=== PATIENT | female | born 1980 | race Caucasian/White ===

== ENCOUNTER 2021-02-12 12:06 | Emergency (ER) | payer OTHER ==
[2021-02-12 12:42] LABS: BASOPHILS # (AUTO) 0.1 10^3/uL (0.0-0.1); BASOPHILS % (AUTO) 0.6 %; EOSINOPHILS # (AUTO) 0.2 10^3/uL (0.0-0.7); EOSINOPHILS % (AUTO) 1.9 %; HCT - HEMATOCRIT 41.2 % (37.0-47.0); HGB - HEMOGLOBIN 13.4 g/dL (12.0-16.0); LYMPHOCYTES # (AUTO) 3.6 10^3/uL (1.5-3.5); LYMPHOCYTES % (AUTO) 32.9 %; MEAN CORPUSCULAR HEMOGLOBIN 28.5 pg (27.0-31.0); MEAN CORPUSCULAR HGB CONC 32.5 g/dL (32.0-36.0); MEAN CORPUSCULAR VOLUME 87.7 fL (81.0-99.0); MEAN PLATELET VOLUME 9.9 fL (7.9-10.8); MONOCYTES # (AUTO) 0.7 10^3/uL (0.0-1.0); MONOCYTES % (AUTO) 6.3 %; NEUTROPHILS # (AUTO) 6.4 10^3/uL (1.5-6.6); PLT - PLATELET COUNT 353 10^3/uL (130-450); RED CELL DISTRIBUTION WIDTH 13.2 % (12.0-15.0); WHITE BLOOD COUNT 11.1 x10^3/uL (4.8-10.8)
--- NOTE | 2021-02-12 12:42 | XRAY Report ---
PROCEDURE: Chest 1 View X-Ray INDICATIONS: Chest pain TECHNIQUE: One view of the chest was acquired. COMPARISON: None FINDINGS: Surgical changes and devices: None. Lungs and pleura: No pleural effusions or pneumothorax. Lungs are clear. Diffuse mild peribronchia l thickening bilaterally. Mediastinum: Mediastinal contours appear normal. Heart size is normal. Bones and chest wall: No suspicious bony lesions. Overlying soft tissues appear unremarkable. IMPRESSION: Findings suggestive of bronchitis and/or reactive airways disease. Reviewed by: Mary Tam MD on 02/12/2021 11:40 AM MISTY Approved by: Mary Tam MD on 02/12/2021 11:40 AM MISTY Station ID: [id number]
--- NOTE | 2021-02-12 12:47 | ED Physician Documentation ---
History of Present Illness - Stated complaint Stated Complaint: HIGH BLOOD PRESSURE - Chief complaint Chief Complaint: Cardiac - Additonal information Additional information: 40-year-old female comes to the emergency department for evaluation of visual changes, elevated blood pressure and chest discomfort. She reports that over the last week she has intermittently developed brief episodes where the vision in both her eyes goes pure white and she cannot see. This is happened at least 8 times and the symptoms usually resolve after a few seconds. However this morning the symptoms lasted for about 5 minutes. She states it was like looking into a bright light she couldn't see past. There was some sparing of her peripheral vision, but it was blurry She reports that last night she had a fairly severe headache but she attributed that to her recent Covid vaccination. She denies that she had any visual changes at the time of her headache last night. no headache or visual changes at the time of the ED evaluation right now. Denies a hx of migraines With her vision changes she has been checking her blood pressure more frequently and notes that the SBP is in the 160s and 170s. She does have a longstanding history of hypertension for which she takes metoprolol ER once daily. She describes some mild chest discomfort and tightness this am that she called "pressure like." She also has a past medical history that includes a mixed connective tissue disorder for which she was taking Plaquenil for over 4 years. However on the advice of her small engine technician she stopped taking it 2 months ago. She denies cough, fevers, unilateral leg swelling. She has no focal neuro deficits slurred speech arm or leg weakness Review of Systems Constitutional: denies: Fever, Chills Eyes: reports: Loss of vision Ears: denies: Loss of hearing, Ear pain Nose: reports: Reviewed and negative Throat: reports: Reviewed and negative Cardiac: reports: Chest pain / pressure, Palpitations. denies: Pedal edema, Calf pain Respiratory: reports: Reviewed and negative GI: reports: Reviewed and negative : reports: Reviewed and negative Skin: denies: Rash, Lesions Musculoskeletal: denies: Neck pain, Back pain Neurologic: reports: Headache. denies: Generalized weakness, Focal weakness, Numbness, Near syncope, Syncope, Seizure, Confused, LOC Psychiatric: reports: Reviewed and negative PD PAST MEDICAL HISTORY - Present Medications Home Medications: Ambulatory Orders Medication Instructions Recorded Confirmed Aspirin [[place]uda Aspirin] 81 mg PO DAILY 02/12/21 02/12/21 Brimonidine 0.1% Ophth Drops 75 drops EACHEYE TID #1 bottle 02/12/21 [Alphagan P 0.1% Ophth Drops] Ergocalciferol [Vitamin D2] 50,000 unit PO 02/12/21 Finasteride [Proscar] 1.25 mg PO DAILY 02/12/21 02/12/21 Latanoprost 0.005% Ophth Drops 1 drops OPTH QPM #2.5 ml 02/12/21 [Xalatan Ophth Drops] Metoprolol Tartrate [Lopressor] 25 mg PO DAILY 02/12/21 02/12/21 Phillips-3/Dha/Epa/Fish Oil [Fish Oil 2,000 mg PO DAILY 02/12/21 02/12/21 1,000 mg Softgel] Timolol 0.5% Ophth Drops [Timoptic 1 drops OPTH BID #5 ml 02/12/21 0.5% Ophth Drops] - Allergies Allergies/Adverse Reactions: Allergies Allergy/AdvReac Type Severity Reaction Status Date / Time bupropion [From Wellbutrin] Allergy Hives Verified 02/12/21 12:16 nitrofurantoin Allergy Rash Verified 02/12/21 12:16 [From Macrobid] trazodone Allergy Hallucinati Verified 02/12/21 12:16 ons PD ED PE EXPANDED - General General: Alert, No acute distress, Well developed/nourished - HEENT HEENT: Atraumatic, PERRL - Eyes Eyes: PERRL, Abnormal accommodation, EOMI, Anterior chambers clear, Other (No visual field deficits.). No: Subconj hemorrhage - Neck Neck: Supple w/out meningeal sx. No: Adenopathy - Cardiac Cardiac: Regular Rate, Radial strong equal, Pedal strong equal, Cap refill < 2 sec. No: Murmur Present - Respiratory Respiratory: Clear to ausultation marcio. No: Distress, Labored - Abdomen Abdomen: Normal Bowel sounds. No: Tender to palpation - Derm Derm: Normal color. No: Petecchiae, Purpura - Extremities Extremities: Normal. No: Deformity, Tenderness - Neuro Neuro: Alert and Oriented X 3, CNII-XII intact, Cerebellar nl, Normal gait, Normal finger nose, Normal speech - GCS Eye Opening: Spontaneous Motor: Obeys Commands Verbal: Oriented Total: 15 Results - Vitals Vitals: Vital Signs - 24 hr 02/12/21 02/12/21 02/12/21 12:16 13:08 15:00 Temperature 36.5 C 36.8 C Heart Rate 76 80 72 Respiratory 16 22 15 Rate Blood Pressure 168/95 H 120/73 142/78 H O2 Saturation 99 98 100 02/12/21 17:00 Temperature 36.8 C Heart Rate 76 Respiratory 21 Rate Blood Pressure 118/71 O2 Saturation 100 Oxygen O2 Source Room air - EKG (time done) 1222 Rate: Rate (enter#) (71) Rhythm: NSR [place]: Normal Intervals: Normal MS QRS: Normal Ischemia: Normal ST segments Compare to prior EKG: Old EKG unavailable Computer interpretation: Agree with computer - Labs Labs: Laboratory Tests 02/12/21 02/12/21 02/12/21 12:22 12:22 12:30 WBC RBC Hgb Hct MCV MCH MCHC RDW Plt Count MPV Neut # (Auto) Lymph # (Auto) [place] # (Auto) Eos # (Auto) Baso # (Auto) Absolute Nucleated RBC Nucleated RBC % ESR 25 H Sodium Potassium Chloride Carbon Dioxide Anion Gap BUN Creatinine Estimated GFR (MDRD) Glucose Calcium Total Bilirubin AST ALT Alkaline Phosphatase Troponin I High Sens C-Reactive Protein 2.4 H Total Protein Albumin Globulin Albumin/Globulin Ratio Lipase TSH Urine Color YELLOW Urine Clarity CLEAR Urine pH 5.5 Ur Specific Hensley 1.025 Urine Protein NEGATIVE Urine Glucose (UA) NEGATIVE Urine Ketones NEGATIVE Urine Occult Blood TRACE-INTA Urine Nitrite NEGATIVE Urine Bilirubin NEGATIVE Urine Urobilinogen 0.2 (NORMAL) Ur Leukocyte Esterase NEGATIVE Ur Microscopic Review NOT INDICATED Urine Culture Comments NOT INDICATED Urine HCG, Qual NEGATIVE Nasal Adenovirus (PCR) Nasal B. parapertussis DNA (PCR) Nasal Coronavir 229E PCR Nasal Coronavir HKU1 PCR Nasal Coronavir NL63 PCR Nasal Coronavir OC43 PCR Nasal Enterovir/Rhinovir PCR Nasal Influenza B PCR Nasal Influenza A PCR Nasal Parainfluen 1 PCR Nasal Parainfluen 2 PCR Nasal Parainfluen 3 PCR Nasal Parainfluen 4 PCR Nasal RSV (PCR) Nasal B.pertussis DNA PCR Nasal C.pneumoniae (PCR) Jv Human Metapneumo PCR Nasal M.pneumoniae (PCR) Nasal SARS-CoV-2 (PCR) 02/12/21 02/12/21 02/12/21 12:35 12:35 12:35 WBC 11.1 H RBC 4.70 Hgb 13.4 Hct 41.2 MCV 87.7 MCH 28.5 MCHC 32.5 RDW 13.2 Plt Count 353 MPV 9.9 Neut # (Auto) 6.4 Lymph # (Auto) 3.6 H [place] # (Auto) 0.7 Eos # (Auto) 0.2 Baso # (Auto) 0.1 Absolute Nucleated RBC 0.00 Nucleated RBC % 0.0 ESR Sodium 138 Potassium 4.1 Chloride 105 Carbon Dioxide 23 Anion Gap 10.0 BUN 14 Creatinine 0.8 Estimated GFR (MDRD) 80 L Glucose 94 Calcium 9.5 Total Bilirubin 0.5 AST 22 ALT 23 Alkaline Phosphatase 68 Troponin I High Sens 2.7 C-Reactive Protein Total Protein 8.0 Albumin 4.4 Globulin 3.6 Albumin/Globulin Ratio 1.2 Lipase 28 TSH Urine Color Urine Clarity Urine pH Ur Specific [place] Urine Protein Urine Glucose (UA) Urine Ketones Urine Occult Blood Urine Nitrite Urine Bilirubin Urine Urobilinogen Ur Leukocyte Esterase Ur Microscopic Review Urine Culture Comments Urine HCG, Qual Nasal Adenovirus (PCR) Nasal B. parapertussis DNA (PCR) Nasal Coronavir 229E PCR Nasal Coronavir HKU1 PCR Nasal Coronavir NL63 PCR Nasal Coronavir OC43 PCR Nasal Enterovir/Rhinovir PCR Nasal Influenza B PCR Nasal Influenza A PCR Nasal Parainfluen 1 PCR Nasal Parainfluen 2 PCR Nasal Parainfluen 3 PCR Nasal Parainfluen 4 PCR Nasal RSV (PCR) Nasal B.pertussis DNA PCR Nasal C.pneumoniae (PCR) Jv Human Metapneumo PCR Nasal M.pneumoniae (PCR) Nasal SARS-CoV-2 (PCR) 02/12/21 02/12/21 12:35 15:22 WBC RBC Hgb Hct MCV MCH MCHC RDW Plt Count MPV Neut # (Auto) Lymph # (Auto) [place] # (Auto) Eos # (Auto) Baso # (Auto) Absolute Nucleated RBC Nucleated RBC % ESR Sodium Potassium Chloride Carbon Dioxide Anion Gap BUN Creatinine Estimated GFR (MDRD) Glucose Calcium Total Bilirubin AST ALT Alkaline Phosphatase Troponin I High Sens C-Reactive Protein Total Protein Albumin Globulin Albumin/Globulin Ratio Lipase TSH 4.61 Urine Color Urine Clarity Urine pH Ur Specific [place] Urine Protein Urine Glucose (UA) Urine Ketones Urine Occult Blood Urine Nitrite Urine Bilirubin Urine Urobilinogen Ur Leukocyte Esterase Ur Microscopic Review Urine Culture Comments Urine HCG, Qual Nasal Adenovirus (PCR) NOT DETECTED Nasal B. parapertussis DNA (PCR) NOT DETECTED Nasal Coronavir 229E PCR NOT DETECTED Nasal Coronavir HKU1 PCR NOT DETECTED Nasal Coronavir NL63 PCR NOT DETECTED Nasal Coronavir OC43 PCR NOT DETECTED Nasal Enterovir/Rhinovir PCR NOT DETECTED Nasal Influenza B PCR NOT DETECTED Nasal Influenza A PCR NOT DETECTED Nasal Parainfluen 1 PCR NOT DETECTED Nasal Parainfluen 2 PCR NOT DETECTED Nasal Parainfluen 3 PCR NOT DETECTED Nasal Parainfluen 4 PCR NOT DETECTED Nasal RSV (PCR) NOT DETECTED Nasal B.pertussis DNA PCR NOT DETECTED Nasal C.pneumoniae (PCR) NOT DETECTED Jv Human Metapneumo PCR NOT DETECTED Nasal M.pneumoniae (PCR) NOT DETECTED Nasal SARS-CoV-2 (PCR) NOT DETECTED - Rads (name of study) CT angio head Radiology: Final report received (Normal CTA of the head. Bilateral ophthalmic arteries are widely patent and normal in opacification. Ventricles are normal in size and shape. Basilar cisterns are patent. No extra-axial fluid collections.) CT angio neck Radiology: Final report received PD MEDICAL DECISION MAKING - ED course Complexity details: reviewed results, re-evaluated patient, considered differential ED course: 40-year-old female who has a history of hypertension as well as a mixed connective tissue disorder presents to the emergency department for elevation of her blood pressure over the last week as well as multiple brief episodes in which she sees a pure white light in both of her eyes limiting her field of vision. She has been off her Plaquenil on the advice of her small engine technician for about 2 months. On exam she has no focal neuro deficits. EKG is nonischemic. High-sensitivity troponin is negative. Chest x-ray without acute focal abnormality. 1300: The bilateral vision changes were discussed with box feeder Dr. Ventura. She is concerned that given the patient's obesity history of mixed connective tissue disorder and the bilateral ocular symptoms that this could represent pseudotumor cerebri or increased ocular pressure. She does recommend CT imaging including vascular imaging of the brain. She would also recommend ocular pressures to be checked at this time. Patient visual acuity in the left eye is 20/30 and the visual acuity in the right eye is 20/20. This is corrected with contact lenses. CT angio of the head and neck are completed. CT angio of the head unremarkable. The CT angio of the neck does show a small enhancing mass at the carotid bifurcation. This may be an enhancing lymph node a schwannoma or other undifferentiated. Recommendation is for follow-up MRI. This is an incidental finding and was discussed with the patient. She will follow up with [facility] to obtain the appropriate MRI order. 1400: Ocular pressures 50 right eye with 95% CI and 54 left eye 95% CI. Needs urgent OrthoI spoke again with Dr. Ventura with ophthalmology. Unfortunately she does not have privileges at this hospital. Allergy consultation but given that the patient has insurance she cannot be seen in office without referral. She does recommend follow-up or evaluation with ophthalmology at [facility]. 1515: I have spoken with the transfer center at [facility]/. Awaiting return phone call from ophthalmology. 1610: I have spoken with Dr. Merritt Unger box feeder on-call at [facility]. We did recheck of the intraocular eye pressures and they were 34 bilaterally respectively. At this time he recommends initiating timolol twice daily, brimonidine twice daily as well as latanoprost once in the evening. He would like to see the patient at [facility] tomorrow at 1 PM. However he is also requesting that we consult neurology for amaurosis fugax. Transfer center is coordinating with a neurologist. 1745: I have spoken with Dr. Angeli Hernandez Neurologist with [facility]. She has reviewed the CT angio images. She to is not certain that the bilateral eyes symptoms are consistent with strokelike etiology. She however is interested in seeing the patient tomorrow afternoon after her ophthalmology appointment. At that time depending on the ophthalmology visit results she may consider further testing that could include an MRI. Patient will be discharged home with a prescription for the pressure lowering eyedrops. She has been given the phone numbers and addresses of the appointment scheduled for her tomorrow at [facility]. 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 As we discussed the cause of your loss of vision is not clear. It is possible that this is an atypical presentation of a stroke but it may also be related to the very elevated pressures in your eyes. Please fill the prescription for the pressure lowering eyedrops. It is important that you take them as prescribed and allow at least 1 to 2 minutes between each different drop when you are administering them together. [facility] opthamology 02/13/21 at [address] [facility], 4th floor, [place] [address] and Ophthalmology is in the [facility] on the fourth floor in the clinic wing. Stroke Clinic 02/13/[address] Katie Hernandez [address], [place] [address] The neurology stroke clinic is in the [facility] corner to the [facility]. It is also called the [facility]. This is on the corner of [address] [place] [address]. When you arrive at the [facility] please park in the building labeled [facility] that is the same building where the B clinic is. You will have to walk across the street to the [facility] first for your ophthalmology appointment then return to the [facility]
[2021-02-12 13:00] LABS: BILIRUBIN,URINE NEGATIVE (NEGATIVE); CLARITY,URINE CLEAR (CLEAR); GLUCOSE, URINE (UA) NEGATIVE (NEGATIVE); HCG UR QUAL NEGATIVE; KETONES,URINE (UA) NEGATIVE (NEGATIVE); LEUKOCYTE ESTERASE, URINE NEGATIVE (NEGATIVE); NITRITE,URINE NEGATIVE (NEGATIVE); OCCULT BLOOD,URINE TRACE-INTA (NEGATIVE); PH,URINE 5.5 PH (5.0-7.5); PROTEIN,URINE NEGATIVE (NEGATIVE); UROBILINOGEN,URINE 0.2 (NORMAL) E.U./dL (NORMAL)
[2021-02-12 13:04] LABS: ALBUMIN 4.4 g/dL (3.2-5.5); ALBUMIN/GLOBULIN RATIO 1.2 (1.0-2.2); BILIRUBIN,TOTAL 0.5 mg/dL (0.2-1.0); CALCIUM 9.5 mg/dL (8.5-10.3); CREATININE 0.8 mg/dL (0.4-1.0); POTASSIUM 4.1 mmol/L (3.5-5.0)
[2021-02-12] MEDS ORDERED: IOPAMIDOL-300 100 ML VIAL ONE (13:10)
[2021-02-12] MEDS ORDERED: IOPAMIDOL-300 100 ML VIAL IVP ONE (13:38)
--- NOTE | 2021-02-12 13:54 | CT Report ---
PROCEDURE: ANGIO HEAD W/WO INDICATIONS: Transient visual loss CONTRAST: IV CONTRAST: Isovue 300 ml: 100 PO CONTRAST: *NO PO CONTRAST TECHNIQUE: Precontrast 4.5 mm thick angled axial sections acquired from the foramen magnum to the vertex. Afte r the administration of intravenous contrast, 1 mm thick sections acquired through the [place] of [place] is. Postcontrast 4.5 mm thick sections then re-acquired from the foramen magnum to the vertex. 3-di mensional rxoqrng-mwqubakix-ucmdtoyphu (MIP) and/or volume rendering reformats were acquired of the c entral intracranial vasculature. For radiation dose reduction, the following was used: automated ex posure control, adjustment of mA and/or kV according to patient size. COMPARISON: None. FINDINGS: Image quality: Excellent. Anterior circulation: Intracranial internal carotid arteries are normal in size and flow. The flow within the paired anterior cerebral arteries is normal and symmetric. The flow within the middle cer ebral arteries is normal and symmetric. The anterior communicating artery is seen. Both ophthalmic a rteries are normal and well opacified. No aneurysms are seen. Posterior circulation: Visualized portions of the vertebral arteries demonstrate normal caliber, and join to form a normal appearing basilar artery. Flow within the posterior cerebral arteries is norm al and symmetric. No aneurysms are seen. CSF spaces: Ventricles are normal in size and shape. Basal cisterns are patent. No extra-axial flu id collections. Brain: No midline shift. No intracranial bleeds or masses. Chakraborty-white matter interface appears int act. Skull and face: Calvarium and facial bones appear intact, without suspicious lesions. Sinuses: Visualized sinuses and mastoids are clear. IMPRESSION: Normal CTA of the head. Bilateral ophthalmic arteries are widely patent and normal in opacification. Reviewed by: Sharad Mullins MD on 02/12/2021 1:53 PM PDT Approved by: Sharad Mullins MD on 02/12/2021 1:53 PM PDT Station ID: [id number]
--- NOTE | 2021-02-12 13:54 | CT Report ---
PROCEDURE: ANGIO NECK W INDICATIONS: Transient vision loss CONTRAST: IV CONTRAST: Isovue 300 ml: 80 PO CONTRAST: *NO PO CONTRAST TECHNIQUE: After the administration of intravenous contrast, 1.5 mm axial sections acquired from the aortic arch to the [place]. Coronal 3-D maximum intensity projection (MIP) and/or volume rendering ref ormats were then performed. For radiation dose reduction, the following was used: automated exposur e control, adjustment of mA and/or kV according to patient size. COMPARISON: None. FINDINGS: Image quality: Excellent. Normal variant bovine arch anatomy, with the brachiocephalic artery and left common carotid artery sh aring a common origin from the arch. The arch branch vessels are widely patent. The bilateral common carotid arteries and carotid bifurcations are widely patent. The extracranial portions of the interna l carotid artery are normal. There is a small (approximately 5 mm) nonspecific focus of soft tissue density with enhancement in th e arterial phase at the carotid bifurcation, interposed between the proximal-most segments of the int ernal and external carotid arteries. This is nonspecific but raises concern for a carotid body paraga nglioma. The subclavian and vertebral arteries are widely patent. IMPRESSION: Widely patent cervical arterial vasculature. Small enhancing mass at the carotid bifurcation, with differential considerations of paraganglioma, a rterially enhancing lymph node, less likely nerve sheath tumor (schwannoma or neurofibroma). The estimate of stenosis included in the report of the imaging study was calculated using the NASCET method Reviewed by: Sharad Mullins MD on 02/12/2021 1:53 PM PDT Approved by: Sharad Mullins MD on 02/12/2021 1:53 PM PDT Station ID: [id number]
[2021-02-12] MEDS ORDERED: BRIMONIDINE 0.1% OPHTH DROPS 5 ML EACHEYE STA (16:08)
[2021-02-12 16:33] LABS: B. PARAPERTUSSIS- RESP PCR PAN NOT DETECTED; B. PERTUSSIS- RESP PCR PANEL NOT DETECTED; C. PNEUMONIAE- RESP PCR PANEL NOT DETECTED; CORONAVIRUS 229E-RESP PCR NOT DETECTED; CORONAVIRUS HKU1-RESP PCR NOT DETECTED; CORONAVIRUS NL63-RESP PCR NOT DETECTED; CORONAVIRUS OC43-RESP PCR NOT DETECTED; HUMAN METAPNEUMOVIRUS NOT DETECTED; INFLUENZA A- RESP PCR PANEL NOT DETECTED; INFLUENZA B - RESP PCR PANEL NOT DETECTED; M. PNEUMONIAE- RESP PCR PANEL NOT DETECTED; PARAINFLUENZA VIRUS 1 NOT DETECTED; PARAINFLUENZA VIRUS 2 NOT DETECTED; PARAINFLUENZA VIRUS 3 NOT DETECTED; PARAINFLUENZA VIRUS 4 NOT DETECTED; RHINOVIRUS/ENTEROVIRUS NOT DETECTED; RSV- RESP PCR PANEL NOT DETECTED; SARS-CoV-2 -RESP PCR PANEL NOT DETECTED
[2021-02-12] MEDS ORDERED: TIMOLOL 0.5% OPHTH DROPS EACHEYE SCH (17:00)
[2021-02-12 18:19] VITALS: BP 124/83
== END 2021-02-12 18:19 | disposition home or self-care (01) ==
LOC: ED 12:06
DX: H54.3 Unqualified visual loss, both eyes (principal); H40.053 Ocular hypertension, bilateral; M35.1 Other overlap syndromes; R07.89 Other chest pain; R93.89 Abnormal findings on diagnostic imaging of other specified body structures; Z79.82 Long term (current) use of aspirin; Z20.822 Contact with and (suspected) exposure to COVID-19
CPT/HCPCS: 0202U; 36415; 70496; 70498; 71045; 80053; 81003; 81025; 83690; 84443; 84484; 85025; 85651; 86140; 93005; 99284; A9270; Q9967; 81001; 87086

== ENCOUNTER 2021-06-08 10:56 | Outpatient (CLI) | payer OTHER ==
[2021-06-10 22:56] VITALS: BP 130/80
--- NOTE | 2021-06-10 22:56 | SLEEP CARE CONSULTATION ---
Information from patient questionnaire entered by Radha Urrutia. I have reviewed and concur with the information entered by Radha Urrutia. This document represents the service I personally performed and the decisions made by me, Steven Joseph MD, [facility]. History of Present Illness Service Date and Time: 06/08/2021 1056 Reason for Visit: New patient Chief Complaint: reports: Unrefreshed sleep, Excessive daytime sleepiness, Fatigue, Frequent awakenings at night Date of Onset: years Usual bedtime: 2200 Time it takes to fall asleep: 5 minutes Snores at night: No (deep breathing) Observed to quit breathing while asleep: No Sleeps alone due to snoring: No Number of times waking at night: 1-3 Reasons for waking at night: reports: Bathroom, Other (arms fall asleep, hips hurt) Toss, Turn, or Twitch while sleeping: No Recalls having dreams: Yes Usually gets out of bed at: 0600 Feels refreshed in the morning: No Morning headache: No (sometimes) Sleepy or fatigued during the day: Yes Ever fallen asleep while driving: No Takes day naps: Yes (sometimes) Dreams during day naps: Yes Prior sleep studies: Yes Year and Where: 05/31/2018 [place], [place] Additional HPI information: I have the pleasure of seeing Ms. Mckeon today regarding the possibility of her having obstructive sleep apnea. As you know, she is a 40 year old lady who complains of snore, unrefreshed sleep, morning headache, excessive daytime sleepiness, and persistent fatigue. She had a home sleep apnea test (HSAT) in [place], [place] showing mild obstructive sleep apnea-hypopnea (AHI of 6.2 and stella oxygen saturation of 84%). She only slept prone that night. She was prescribed a CPAP which she tried to use for 3 4 months. She said the nasal mask kept coming off her face. She did not notice any improvement on the treatment. She still has the Respironics DreamStation autoCPAP but is not using. She is not aware that it is recalled. Since her HSAT, she has gained 35 lbs. She is seeing a mutuel machine operator who thinks she might have fibromyalgia but would like to have her sleep-disordered breathing be reevaluated first. - Parasomnia Symptoms Walks in sleep: No Talks in sleep: No Ever acted out dreams in sleep: No Ever felt weak in the knees when startled or emotional: No Bothered by creepy, crawly, restless sensations in legs: No Problems with memory or concentration: Yes Subjective Initial [place] Sleepiness Scale score: 11 (on 06/2021) Past Medical History Past Medical History: reports: Claustrophobia, Fibromyalgia, Anxiety, GERD, Other (bifurcation carotid artery mass) Social History The patient's occupation is a [employer]. Patient is and lives in [place]. Have you smoked in the past 12 months: Yes Quit date: 2004 Alcohol use: No Caffeine use: Yes Caffeine amount and frequency: 8-16 oz coffee/am Family History Family history of sleep disordered breathing: Yes Family Hx Sleep Apnea: Mother: Snoring, Sleep apnea - Treated, Father: Snoring, Sleep apnea - Treated Allergies and Home Medications Known drug allergies: Yes (wellbutrin, macrobid, int-trazodone) Drug allergies reviewed: Yes Home medication list reviewed: Yes Review of Systems Weight gain over past 5 years: 50 Weight loss over past 5 years: 30 Cardiovascular: reports: palpitations (on metoprolol) Respiratory: denies: shortness of breath, wheeze, sputum production, chronic cough, other Gastrointestinal: reports: heartburn, abdominal pain Urinary: reports: frequency, urgency Neurological: reports: headaches (off and on), other (dizzy/lightheaded since 02/12/21) Ear/Nose/Throat: reports: wisdom teeth removed Endocrine: reports: sluggishness, too hot or cold (*cold) Musculoskeletal: reports: joint pain, muscle pain or cramping Immunologic: reports: itching Physical Exam Vital signs obtained and entered by: Dr. Joseph Blood Pressure: 130/80 Cuff size: regular Heart Rate: 59 O2 Saturation: 98 Height: 5 ft Weight: 205 lb Body Mass Index: 40.0 BMI Classification: Morbidly Obese Neck circumference: 16.5 Mood/affect: normal HEENT: No craniofacial malformation Nostrils: patent to airflow Turbinates: normal Septum: midline Mouth and throat: narrow oropharynx Soft palate: long Hard palate: normal Uvula: normal Uvula visualization: 50% Mallampati Class II Tongue: normal in size Tonsils: small Chin and jaw: normal size and position Neck: normal w/o lymphadenopathy or thyromegaly Heart: regular rate and rhythm Lungs: clear bilaterally Abdomen: soft Extremities: no edema or clubbing Neurologic: intact Impression and Plan IMPRESSION: 1. Obstructive Sleep Apnea-Hypopnea Syndrome, mild, as previously diagnosed. The patient appears to be symptomatic for snore, frequent awakenings, unrefreshed sleep, persistent fatigue, and excessive daytime sleepiness. She is presently untreated. Her 35-lb weight gain could have made the sleep-disordered breathing worse. Therefore, I recommend proceeding to an in-laboratory polysomnography. Plan: 1. Schedule polysomnography and return in 1 to 2 weeks after the study to discuss result and initiate therapy. 2. Avoid long distance driving or when feeling sleepy. 3. Avoid alcohol, sedative and muscle relaxant around bedtime. 4. Attempt to lose weight. Counseling Topics: Weight control Visit Type: In Office Time Spent with Patient (minutes): 15 Provider Statement: I spent 100% of the Face to Face Visit with the patient with greater than 50% spent counseling the patient and coordination of care.
== END 2021-06-08 10:57 | disposition home or self-care (01) ==
LOC: SC 10:56
PROVIDERS: ATTEND Internal Medicine Pulmonary Disease
DX: G47.33 Obstructive sleep apnea (adult) (pediatric) (principal); E66.01 Morbid (severe) obesity due to excess calories; Z68.41 Body mass index [BMI] 40.0-44.9, adult
CPT/HCPCS: 99202; 99212

== ENCOUNTER 2021-06-11 20:42 | Outpatient (CLI) | payer OTHER | END 2021-06-11 20:43 | disposition home or self-care (01) | LOC: SC 20:42 | PROVIDERS: ATTEND Internal Medicine Pulmonary Disease | DX: G47.61 Periodic limb movement disorder (principal) | CPT/HCPCS: 95810 ==

== ENCOUNTER 2021-06-26 09:05 | Outpatient (CLI) | payer OTHER ==
--- NOTE | 2021-06-26 09:32 | SLEEP CARE CONSULTATION ---
Information from patient questionnaire entered by Karine Del Valle. I have reviewed and concur with the information entered by Karine Del Valle. This document represents the service I personally performed and the decisions made by , Caren Reno ARNP. History of Present Illness Service Date and Time: 06/26/2021904 Initial [place] Sleepiness Scale score: 11 (in 2020) Current [place] Sleepiness Scale score: 11 Additional HPI information: BAKARI VELASQUEZ returns for follow up and results of the recently performed polysomnography. The patient was informed of the following findings: No significant sleep disordered breathing with an average AHI of 3.5 and a stella oxygen saturation of 86%. Patient also had some mild periodic leg movements of sleep. Patient did not sleep supine during the study. I explained the pathophysiology behind obstructive sleep apnea. Patient does not have sleep apnea and was advised how weight gain could increase the risk of developing sleep apnea in the future. I strongly encouraged the patient to lose weight. Patient has moderate snoring. Snoring can be reduced by weight loss. Weight loss is best achieved with diet consult. Patient instructed to contact PCP for referral. Snoring can also be treated with an oral appliance from a dentist. Advised to check insurance coverage. In addition, an ENT evaluation can be do to see if other treatment is indicated. Patient counseled not drink alcohol less than 4 hours before bedtime as it can increase snoring and apnea. Patient was cautioned about risks of drowsy driving until sleepiness symptoms resolve. Sleep Study - Results Type of Sleep Study: Polysomnography Prior sleep studies: Yes Year and Where: 2018 - [place], [place] Polysomnography/Home Sleep Study results: IMPRESSION: The quality of the study is good. The patient had normal sleep efficiency. The sleep architecture was also normal. Respiratory monitoring showed no significant sleep disordered breathing (AHI = 3.5) or hypoxia (stella oxygen saturation of 86% and only 0.3% to the total sleep time was spent with oxygen saturation below 90%). The few respiratory events occurred mainly during REM sleep. The patient did not sleep supine during this study (supine AHI = 0.0; non-supine = 3.51). Snore was light to moderate in intensity. There was mild periodic leg movement of sleep not associated with sleep fragmentation. Cardiac rhythm was normal sinus rhythm without significant arrhythmia. No abnormal behavior (parasomnia) observed during the night. Allergies and Home Medications Home medication list reviewed: Yes (no changes) Review of Systems Review of systems same as previous: Yes (no changes) Physical Exam Heart Rate: 68 O2 Saturation: 96 Height: 5 ft Weight: 209 lb Body Mass Index: 40.8 BMI Classification: Morbidly Obese Impression and Plan 1. Snoring but no significant sleep disordered breathing. Patient advised that often weight loss will reduce snoring as well as apnea risk. An oral appliance can also be used for snoring. This would require a dental consultation. Patient cautioned not to use other online appliances as can cause bite issues. A list of accredited dentists in [facility] and one local dentist who makes oral appliances available in office. Patient is advised to check if insurance will cover. An ENT consult can also be helpful to determine if any other treatment is an option. 2. Insomnia, difficulty maintaining sleep. Patient is able to go to sleep within 10 minutes but then will wake up on average 3 times and lay awake for 1 or more hours. Insomnia is generally caused by an irregular sleep schedule, spending too much time in bed, napping, caffiene, electronics, lack of a relaxing bedtime ritual and clock watching. Other factors can include anxiety/depression, pain, medications, and obstructive sleep apnea. First I counseled the patient on the importance of a regular sleep schedule, starting with the wake time. I explained the homestatic sleep drive and how maintaining a regular wake time will allow the patient to be tired enough to sleep 15-16 hours later. By waking at the same time, the patient will also feel more alert. It is important to have a relaxing ritual about 30-60 minutes before bedtime to allow the mind/body transition from an active day to sleep. The alarm clock should be set and the face covered to prevent clock watching if awakened during the night. Knowing the time can cause anxiety and increase alertness and thinking about sleep time and preparation for the next day. Instead if awakened after sleep, the patient is to position for comfort or use bathroom and return to sleep. If unable to go to sleep in an estimated 20 minutes of more, it is advised to leave the bedroom and engage in a quiet activity until sleepy enough to return to bed. If unable to sleep due to things on the mind, it is recommended to write out the concerns or list to do as a release then return to a quiet activity until sleepy enough to return to bed. This is to be repeated as often as necessary to associate the bed with sleep and not frustration to get to sleep. [facility] How to Sleep Better pamphlet given and reviewed. A sleep diary will be completed for the next 2 weeks to assist implementation of recommendations and for further evaluation of sleep concerns. * Attempt to lose weight * Avoid alcohol consumption near bedtime * The patient is cautioned about driving until sleepiness is completely resolved. * Return for follow up with Dr. Joseph to evaluate for insomnia. Counseling Topics: Weight loss health impact Visit Type: In Office Time Spent with Patient (minutes): 22 Provider Statement: I spent 100% of the Face to Face Visit with the patient with greater than 50% spent counseling the patient and coordination of care.
== END 2021-06-26 09:06 | disposition home or self-care (01) ==
LOC: SC 09:05
PROVIDERS: ATTEND Nurse Practitioner Family
DX: R06.83 Snoring (principal); G47.00 Insomnia, unspecified
CPT/HCPCS: 99212; 99213

== ENCOUNTER 2021-09-28 09:06 | Outpatient (CLI) | payer OTHER ==
[2021-09-28 10:51] VITALS: BP 142/91
--- NOTE | 2021-09-28 10:51 | SLEEP CARE CONSULTATION ---
Information from patient questionnaire entered by Rosemary Griffith MA. I have reviewed and concur with the information entered by Rosemary Griffith MA. This document represents the service I personally performed and the decisions made by me, Steven Joseph MD, [facility]. History of Present Illness Service Date and Time: 09/28/2021 0906 Reason for follow up: one month (1 MONTH WITH 2 WEEK ) Mask style: Full face Prior sleep studies: Yes Year and Where: 05/31/2018 [place], [place], 06/2021 [facility] HPI additional information: HPI: Ms. Mckeon returned for follow up of the sleep study she had on 06/11/2021.. The polysomnography showed that the patient had normal sleep efficiency. The sleep architecture was also normal. Respiratory monitoring showed no significant sleep disordered breathing (AHI = 3.5) or hypoxia (stella oxygen saturation of 86 % and only 0.3% to the total sleep time was spent with oxygen saturation below 90%). The few respiratory events occurred mainly during REM sleep. The patient did not sleep supine during this study (supine AHI = 0.0; non-supine = 3.51). Snore was light to moderate in intensity. There was mild periodic leg movement of sleep not associated with sleep fragmentation. Cardiac rhythm was normal sinus rhythm without significant arrhythmia. No abnormal behavior (parasomnia) observed during the night. The patient was informed of these findings. I explained to her that the sleep study did not show significant sleep disordered breathing but she did not sleep supine. She says that at home she does not sleep supine either. Her main problem is waking for an hour during the night and feeling exhausted during the day. In reviewing her sleep diary, it appears that she goes to bed between 9:45 pm to 11 pm. She gets up on her own around 7 7:30 am (earlier on a few days to send her children to school). She will sleep in to 7:55 am if she lies awake longer at night. Sleep Study - Results Type of Sleep Study: Polysomnography Prior sleep studies: Yes Year and Where: 05/31/2018 [place], [place], 06/2021 [facility] Subjective Initial [place] Sleepiness Scale score: 11 (2020) Current [place] Sleepiness Scale score: 11 (2020) Allergies and Home Medications Known drug allergies: Yes (MACROBID, WELBUTRIN, TRAZODONE) Drug allergies reviewed: Yes Home medication list reviewed: Yes Review of Systems Review of systems same as previous: Yes Physical Exam Vital signs obtained and entered by: MEDARDO RAMEY Blood Pressure: 142/91 (right ) Cuff size: wrist Heart Rate: 80 O2 Saturation: 100 (with mask) Height: 5 ft Weight: 205 lb (with boots) Body Mass Index: 40.0 BMI Classification: Morbidly Obese Impression and Plan IMPRESSION: 1. Fatigue, moderate, not due to sleep disrupting conditions. No significan sleep disordered breathing. I explained to her that fatigue can come from many etiologies, and in her case, most likely not sleep. 2. Insomnia, involving sleep maintenance. From her sleep diary, excessive time spent in bed is a factor. On the average, she is spending about 9 hours in bed a night. She compensates when not sleeping during the night. She was advised to limit time spent in bed to the normal amount of 8 hours. If she goes to bed at 10:30 pm, she must get out of bed by 6:30 am, regardless of how long she lies awake during the night. She should not go to bed any earlier than 10:30 pm either. No naps. PLAN: 1. Maintain a regular wake up time and spend no more than 8 hours in bed at night. Avoid naps. 2. Avoid sleeping supine 3. Avoid further weight gain. 4. Return for a follow up on as needed basis. Follow up with Sleep Care in: as needed Visit Type: In Office Time Spent with Patient (minutes): 15 Provider Statement: I spent 100% of the Face to Face Visit with the patient with greater than 50% spent counseling the patient and coordination of care.
== END 2021-09-28 09:07 | disposition home or self-care (01) ==
LOC: SC 09:06
PROVIDERS: ATTEND Internal Medicine Pulmonary Disease
DX: R53.83 Other fatigue (principal); G47.00 Insomnia, unspecified; E66.01 Morbid (severe) obesity due to excess calories; Z68.41 Body mass index [BMI] 40.0-44.9, adult
CPT/HCPCS: 99212

== ENCOUNTER 2023-03-03 08:00 | Outpatient (CLI) | payer OTHER ==
[2023-03-04 00:31] LABS: BACTERIAL VAGINOSIS DNA UNRESOLVED (NEGATIVE)
[2023-03-04 00:32] LABS: CANDIDA GLABRATA DNA UNRESOLVED (NEGATIVE); CANDIDA GROUP DNA UNRESOLVED (NEGATIVE); CANDIDA KRUSEI DNA UNRESOLVED (NEGATIVE); TRICHOMONAS VAGINALIS DNA UNRESOLVED (NEGATIVE)
== END 2023-03-03 23:59 | disposition home or self-care (01) ==
LOC: LAB.WC 08:00
PROVIDERS: ATTEND Nurse Practitioner
DX: L29.8 Other pruritus (principal)
CPT/HCPCS: 81514

== ENCOUNTER 2023-03-07 08:00 | Outpatient (CLI) | payer OTHER ==
[2023-03-09 19:34] LABS: BACTERIAL VAGINOSIS DNA NEGATIVE (NEGATIVE); CANDIDA GLABRATA DNA NEGATIVE (NEGATIVE); CANDIDA GROUP DNA NEGATIVE (NEGATIVE); CANDIDA KRUSEI DNA NEGATIVE (NEGATIVE); TRICHOMONAS VAGINALIS DNA NEGATIVE (NEGATIVE)
== END 2023-03-07 23:59 | disposition home or self-care (01) ==
LOC: LAB.WC 08:00
PROVIDERS: ATTEND Nurse Practitioner
DX: L29.8 Other pruritus (principal)
CPT/HCPCS: 81514

== ENCOUNTER 2023-03-21 09:33 | Outpatient (CLI) | payer OTHER ==
--- NOTE | 2023-03-21 14:37 | MRI Report ---
PROCEDURE: ELBOW WO - RT INDICATIONS: FX OF RIGHT ULNA TECHNIQUE: Noncontrast coronal proton density fast spin echo and T2 fast spin echo with fat saturation, axial an d sagittal T1 spin echo and T2 fast spin echo with fat saturation through the elbow. COMPARISON: None. FINDINGS: Image quality: Excellent. Lateral structures: The lateral ulnar collateral ligament and radial collateral ligament both appear abdomen. The overlying common extensor tendon appears thickened at its lateral epicondylar insertio n. Medial structures: The ulnar collateral ligament appears intact. The overlying common flexor tendon appears normal. The ulnar nerve appears normal in size and signal within the cubital tunnel. Anterior structures: The biceps and brachialis tendons both appear intact as they insert onto the pr oximal radius and ulna, respectively. No bicipitoradial bursal fluid. The median and radial neurova scular bundles appear normal; no focal muscle atrophy to suggest nerve impingement. Posterior structures: The triceps tendon appears intact. No olecranon bursal fluid. Bone and cartilage: No bone marrow contusions or fractures. No osteochondral injuries. IMPRESSION: 1. Finding is suggestive of mild lateral epicondylitis with tendinosis and low-grade partial-thicknes s tear involving common extensor tendon origin and lateral epicondyles mild lateral collateral ligame nt sprain. 2. No definite acute fracture or dislocation is seen. No marrow edema. No osteochondral injuries. 3. Rest of the elbow tendons and ligaments are intact. Reviewed by: Max Nye MD on 03/21/2023 1:35 PM AKJERARDO Approved by: Max Nye MD on 03/21/2023 1:35 PM AKDT Station ID: [id number]
== END 2023-03-21 09:34 | disposition home or self-care (01) ==
LOC: DI 09:33
PROVIDERS: ATTEND Nurse Practitioner Family
DX: S52.201S Unspecified fracture of shaft of right ulna, sequela (principal)

== ENCOUNTER 2023-03-28 11:35 | Outpatient (CLI) | payer OTHER ==
--- NOTE | 2023-04-06 10:04 | Mammography Report ---
BILATERAL DIGITAL SCREENING MAMMOGRAM 3D/2D: 03/28/2023 CLINICAL: Routine screening. No prior exams were available for comparison. There are scattered areas of fibroglandular density in both breasts (category b / 25%-50% glandular t issue). No significant masses, calcifications, or other findings are seen in either breast. IMPRESSION: NEGATIVE There is no mammographic evidence of malignancy. A 1 year screening mammogram is recommended. Based on the Tyrer Cuzick model (a risk assessment model) the patients lifetime risk is 6.8% and her 10 year risk is 0.9%. According to the ACR, ACS, and NCCN guidelines, an annual breast MRI exam antoni g with mammogram is recommended if the patients lifetime risk is 20% or greater. This exam was interpreted at Station ID: [id number]. NOTE: For mammograms, a report in lay terms will be sent to the patient. Approximately 15% of breast malignancies will not be visualized mammographically. In the management of a palpable breast mass, a negative mammogram must not discourage biopsy of a clinically suspicious lesion. Electronically Signed By: Manpreet Webster M.D. [facility] [place]:04/05/2023 15:19:18 letter sent: No_Letter ACR BI-RADS Category 1: Negative 3341F PARENCHYMAL PATTERN: (A) - The breast(s) demonstrate(s) scattered fibroglandular densities. BI-RADS CATEGORY: (1) - 1 Mammogram [id number] 1 year screening LATERALITY: (B)
== END 2023-03-28 11:36 | disposition home or self-care (01) ==
LOC: DI 11:35
PROVIDERS: ATTEND Nurse Practitioner
DX: Z12.31 Encounter for screening mammogram for malignant neoplasm of breast (principal)

== ENCOUNTER 2023-03-28 11:35 | Outpatient (CLI) | payer OTHER ==
--- NOTE | 2023-03-28 14:23 | Ultrasound Report ---
PROCEDURE: Abdomen Limited INDICATIONS: PERIUMBILICAL PAIN TECHNIQUE: Real-time focused scanning was performed of the abdomen, with image documentation. COMPARISONS: None. FINDINGS: In the area of pain, there is no evidence of fascial defect or hernia at rest or during Valsalva delon uver. IMPRESSION: 1. No evidence of periumbilical hernia. Reviewed by: Mary Tam MD on 03/28/2023 2:21 PM PDT Approved by: Mary Tam MD on 03/28/2023 2:21 PM PDT Station ID: [id number]
== END 2023-03-28 11:36 | disposition home or self-care (01) ==
LOC: DI 11:35
PROVIDERS: ATTEND Nurse Practitioner
DX: R10.33 Periumbilical pain (principal)

== ENCOUNTER 2023-07-13 08:00 | Outpatient (CLI) | payer OTHER ==
[2023-07-13 16:16] LABS: BILIRUBIN,URINE NEGATIVE (NEGATIVE); GLUCOSE, URINE (UA) NEGATIVE (NEGATIVE); KETONES,URINE (UA) NEGATIVE (NEGATIVE); LEUKOCYTE ESTERASE, URINE NEGATIVE (NEGATIVE); NITRITE,URINE NEGATIVE (NEGATIVE); OCCULT BLOOD,URINE TRACE-INTA (NEGATIVE); PH,URINE 5.5 PH (5.0-7.5); PROTEIN,URINE NEGATIVE (NEGATIVE); UROBILINOGEN,URINE 0.2 (NORMAL) E.U./dL (NORMAL)
[2023-07-13 16:19] LABS: CLARITY,URINE CLOUDY (CLEAR)
[2023-07-13 16:29] LABS: AMORPHOUS SEDIMENT,UR Marked /LPF; BACTERIA,URINE Rare /HPF (None Seen); RBC,URINE 0-5 /HPF (0-5); SQUAMOUS EPITHELIAL CELL,UR FEW Squamous (<= Few); WBC,URINE 0-3 /HPF (0-5)
== END 2023-07-13 23:59 | disposition home or self-care (01) ==
LOC: LAB 08:00
PROVIDERS: ATTEND Urology
DX: N30.10 Interstitial cystitis (chronic) without hematuria (principal)
CPT/HCPCS: 81001; 87086